=== PATIENT | male | born 1990 | race Caucasian/White ===

== ENCOUNTER 2021-05-16 08:15 | Day surgery (SDC) | payer MEDICAID, SELFPAY ==
[~2021-05-16] VITALS: Ht 167.6 cm; Wt 79.4 kg
[2021-05-16] MEDS ORDERED: fentaNYL CITRATE/PF 100 MCG/2 ML AMP ONE (09:57)
[2021-05-16] MEDS ORDERED: DIPHENHYDRAMINE INJ 50 MG/ML VIAL ONE (09:57)
[2021-05-16] MEDS ORDERED: SIMETHICONE 40 MG/0.6 ML ML ONE (09:57)
[2021-05-16] MEDS ORDERED: MIDAZOLAM HCL 5 MG/5 ML VIAL ONE ×2 (09:58→10:27)
[2021-05-16 13:21] VITALS: BP_SYST 124
== END 2021-05-16 11:20 | disposition home or self-care (01) ==
LOC: SDS 08:15 → SMU 08:17 → EDSEX 10:45 → SDS 11:20
PROVIDERS: ATTEND Internal Medicine
DX: I85.00 Esophageal varices without bleeding (principal); K29.70 Gastritis, unspecified, without bleeding; K74.60 Unspecified cirrhosis of liver; R79.89 Other specified abnormal findings of blood chemistry; I10 Essential (primary) hypertension; Z79.899 Other long term (current) drug therapy; Z20.822 Contact with and (suspected) exposure to COVID-19
CPT/HCPCS: 36415; 43239; 43244; 87081; 88305; 88312; 88313; 99152; G0378; J1200; J2250; J3010; U0003